=== PATIENT | female | born 1935 | race Caucasian/White ===

== ENCOUNTER 2017-10-06 15:09 | Emergency (ER) | payer OTHER ==
[~2017-10-06] VITALS: Ht 167.6 cm; Wt 55.7 kg
[~2017-10-06 15:09] MED LIST: LEVOTHYROXINE50 MCG PO; LEVOTHYROXINE75 MCG PO; Milk Of Magnesia,MOM PO; Senokot,Sennagen PO; TRAMADOL HCL50 MG PO
[2017-10-06 15:25] VITALS: BP 147/65
== END 2017-10-06 17:58 | disposition home or self-care (01) ==
LOC: EME 15:09
DX: S20.211A Contusion of right front wall of thorax, initial encounter (principal); X50.1XXA Overexertion from prolonged static or awkward postures, initial encounter; Y93.E9 Activity, other interior property and clothing maintenance
CPT/HCPCS: 71020; 99281; 99284